=== PATIENT | female | born 1975 | race Hispanic/Latino ===

== ENCOUNTER 2018-05-05 08:50 | Emergency (ER) | payer OTHER, BC ==
[2018-05-05 08:56] VITALS: RESP 18; O2SAT 100
[2018-05-05 09:01] VITALS: BMI 22.2
[2018-05-05 10:54] VITALS: BP 137/78; PULSE 82; TEMP 98.6
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
== END 2018-05-05 11:48 | disposition home or self-care (01) ==
LOC: ED 08:50
DX: R51 Headache (principal); F17.210 Nicotine dependence, cigarettes, uncomplicated